=== PATIENT | male | born 1995 | race Caucasian/White ===

== ENCOUNTER 2017-07-13 18:30 | Emergency (ER) | payer SELFPAY ==
[~2017-07-13] VITALS: Ht 177.8 cm; Wt 75.0 kg
[2017-07-13] MEDS ORDERED: IBUPROFEN 600 MG TABLET PO ONE (19:15)
[2017-07-13] MEDS ORDERED: PERTUSS(ACELL),DIPH,TET VAC/PF 0.5 ML VIAL IM ONE (19:15)
[2017-07-13 20:27] VITALS: BP 137/74
== END 2017-07-13 20:30 | disposition home or self-care (01) ==
LOC: EMS 18:31
DX: S01.511A Laceration without foreign body of lip, initial encounter (principal); I10 Essential (primary) hypertension; Y04.0XXA Assault by unarmed brawl or fight, initial encounter; Y93.89 Activity, other specified; Y92.89 Other specified places as the place of occurrence of the external cause; Y99.8 Other external cause status
CPT/HCPCS: 70450; 90471; 90715; 99284